=== PATIENT | male | born 1980 | race Caucasian/White ===

== ENCOUNTER 2019-07-17 21:36 | Emergency (ER) | payer OTHER, SELFPAY ==
[~2019-07-17] VITALS: Ht 165.1 cm; Wt 64.9 kg
[2019-07-17 21:44] VITALS: Ht 165.1 cm; Wt 64.9 kg
[2019-07-18 01:38] VITALS: BP 103/68
== END 2019-07-18 01:30 | disposition home or self-care (01) ==
LOC: ED 21:36
DX: R50.9 Fever, unspecified (principal); M79.10 Myalgia, unspecified site; R51 Headache; Z20.828 Contact with and (suspected) exposure to other viral communicable diseases
CPT/HCPCS: 87804; Q0092; U0003-CS

== ENCOUNTER 2019-07-26 18:30 | Inpatient (IN) | payer OTHER, SELFPAY ==
[~2019-07-26] VITALS: Ht 165.1 cm; Wt 63.1 kg
[2019-07-26 19:36] VITALS: Ht 165.1 cm; Wt 63.1 kg
[2019-07-26 20:15] LABS: BASOPHIL % 0.5 % (0-2); PLATELET COUNT 183 x10^3mcL (130-400); RED CELL DISTRIBUTION WIDTH 12.6 % (11.5-14.5)
[2019-07-26 20:40] LABS: CALCIUM 8.8 mg/dL (8.5-10.1); CARBON DIOXIDE 29.5 mmol/L (21-32); CHLORIDE SERUM 100 mmol/L (98-107); CREATININE SERUM 1.1 mg/dL (0.7-1.3); GFR1 > 60 mL/min; GLUCOSE SERUM 103 mg/dL (74-106); POTASSIUM SERUM 4.5 mmol/L (3.5-5.1); SODIUM SERUM 137 mmol/L (136-145)
[2019-07-26 20:44] LABS: ALBUMIN 3.7 g/dL (3.4-5.0); ALKALINE PHOSPHATASE 57 U/L (46-116); ALT/SGPT 39 U/L (16-63); AST/SGOT 25 U/L (15-37); BILIRUBIN TOTAL 0.38 mg/dL (0.20-1.00); TOTAL PROTEIN, SERUM 8.2 g/dL (6.4-8.2)
[2019-07-26 20:45] LABS: CHOLESTEROL 124 mg/dL (<200); HDL CHOLESTEROL 28 mg/dL (40-60)
[2019-07-26 22:47] VITALS: BP 102/64
[2019-07-26 23:16] VITALS: BP 102/64
[2019-07-27 05:48] VITALS: BP 96/60
[2019-07-27 06:10] VITALS: BP 102/64
[2019-07-27 06:31] LABS: BASOPHIL % 0.5 % (0-2); PLATELET COUNT 206 x10^3mcL (130-400); RED CELL DISTRIBUTION WIDTH 12.9 % (11.5-14.5)
[2019-07-27 06:48] LABS: ALBUMIN 3.4 g/dL (3.4-5.0); ALKALINE PHOSPHATASE 57 U/L (46-116); ALT/SGPT 48 U/L (16-63); AST/SGOT 40 U/L (15-37); CALCIUM 8.2 mg/dL (8.5-10.1); CARBON DIOXIDE 30.5 mmol/L (21-32); CHLORIDE SERUM 100 mmol/L (98-107); CREATININE SERUM 0.9 mg/dL (0.7-1.3); GFR1 > 60 mL/min; GLUCOSE SERUM 99 mg/dL (74-106); POTASSIUM SERUM 3.9 mmol/L (3.5-5.1); SODIUM SERUM 137 mmol/L (136-145); TOTAL PROTEIN, SERUM 7.7 g/dL (6.4-8.2)
[2019-07-27] MEDS ORDERED: ELIQUIS5 MG PO (12:17)
[2019-07-27 12:20] VITALS: BP 102/64
== END 2019-07-27 12:48 | disposition home or self-care (01) | DRG 137 ==
LOC: ED 18:30 → DU 21:03
PROVIDERS: Emergency Medicine; ADMIT Internal Medicine Pulmonary Disease; ATTEND Internal Medicine Pulmonary Disease
DX: U07.1 COVID-19 (principal); J12.89 Other viral pneumonia
CPT/HCPCS: 36600; 83880; 85378; G0378; J0456; J0696; J1650; J3535; J7030; J7050; J7060; Q0092